=== PATIENT | female | born 1935 | race American Indian/Alaskan Native ===

== ENCOUNTER 2020-07-08 11:29 | Emergency (ER) | payer MEDICARE ==
[2020-07-08] MEDS ORDERED: ACETAMINOPHEN 325 MG TAB PO ONE (13:36)
--- NOTE | 2020-07-08 13:47 | Emergency Department Report ---
ED Fall HPI - General Chief Complaint: Fall Stated Complaint: FALL Time Seen by Provider: 07/08/20 13:35 Source: patient, EMS Mode of arrival: Stretcher - History of Present Illness Initial Comments: 85-year-old female with a history of previous CVA with left-sided motor deficits who presents to the emergency department with complaint of foot pain after a fall. Patient had a unwitnessed fall and was found down on the ground by staff at her snf home. Patient typically gets around with a walker. Patient reports foot pain but denies pain anywhere else. She also denies loss of consciousness. Blood sugar was noted to be 228 with EMS. - Related Data Home Medications Medication Instructions Recorded Confirmed Last Taken Aspirin [Baby Aspirin] 324 mg PO ONCE 06/05/13 Unknown Diltiazem HCl [Diltiazem ER] 240 mg PO 06/05/13 Unknown Ferrous Sulfate [Feosol] 325 mg PO ONCE 06/05/13 Unknown Hydralazine HCl [Apresoline TAB] 50 mg PO Q12H 06/05/13 Unknown Insulin Aspart Prot/Aspart(Nf) 1,000 unit SQ 06/05/13 Unknown [Novolog Mix 70/30] Isosorbide Mononitrate [Isosorbide 60 mg PO 06/05/13 Unknown Mononitrate ER] Latanoprost 0.005% [Xalatan 0.005%] 1 drop OP QPM 06/05/13 Unknown Oxybutynin Chloride [Oxybutynin 5 mg PO QDAY 06/05/13 Unknown Chloride ER] Simvastatin 10 mg PO QDAY 06/05/13 Unknown carvediloL [Coreg] 6.25 mg PO BID 06/05/13 Unknown lisinopriL [Zestril] 5 mg PO QDAY 06/05/13 Unknown Allergies Allergy/AdvReac Type Severity Reaction Status Date / Time No Known Allergies Allergy Verified 06/05/13 21:14 ED Review of Systems ROS: Stated complaint: FALL Other details as noted in HPI Comment: Unobtainable due to pts medical conditions ED Past Medical Hx - Past Medical History Hx Hypertension: Yes Hx Diabetes: Yes Additional medical history: kidney cancer 2001and breast cancer 1989 - Surgical History Additional Surgical History: mastectomy 1989 - Social History Smoking Status: Unknown if ever smoked - Medications Home Medications: Home Medications Medication Instructions Recorded Confirmed Last Taken Type Aspirin [Baby Aspirin] 324 mg PO ONCE 06/05/13 Unknown History Diltiazem HCl [Diltiazem ER] 240 mg PO 06/05/13 Unknown History Ferrous Sulfate [Feosol] 325 mg PO ONCE 06/05/13 Unknown History Hydralazine HCl [Apresoline TAB] 50 mg PO Q12H 06/05/13 Unknown History Insulin Aspart Prot/Aspart(Nf) 1,000 unit SQ 06/05/13 Unknown History [Novolog Mix 70/30] Isosorbide Mononitrate [Isosorbide 60 mg PO 06/05/13 Unknown History Mononitrate ER] Latanoprost 0.005% [Xalatan 0.005%] 1 drop OP QPM 06/05/13 Unknown History Oxybutynin Chloride [Oxybutynin 5 mg PO QDAY 06/05/13 Unknown History Chloride ER] Simvastatin 10 mg PO QDAY 06/05/13 Unknown History carvediloL [Coreg] 6.25 mg PO BID 06/05/13 Unknown History lisinopriL [Zestril] 5 mg PO QDAY 06/05/13 Unknown History ED Physical Exam - General Limitations: No Limitations General appearance: alert, in no apparent distress - Head Head exam: Present: atraumatic, normocephalic - Eye Eye exam: Present: normal appearance, PERRL, EOMI - ENT ENT exam: Present: normal exam - Neck Neck exam: Present: normal inspection - Respiratory Respiratory exam: Present: normal lung sounds bilaterally. Absent: respiratory distress, chest wall tenderness - Cardiovascular Cardiovascular Exam: Present: regular rate, normal rhythm, normal heart sounds - GI/Abdominal GI/Abdominal exam: Present: soft. Absent: distended, tenderness - Rectal Rectal exam: Present: deferred - Expanded Lower Extremity Exam Right Foot/Toe exam: Present: tenderness - Back Exam Back exam: Present: normal inspection - Neurological Exam Neurological exam: Present: alert, oriented X3, other - Psychiatric Psychiatric exam: Present: normal affect - Skin Skin exam: Present: warm, dry, intact ED Course Vital Signs 07/08/20 07/08/20 13:32 13:48 Temperature 98.4 F Pulse Rate 79 Respiratory 16 17 Rate Blood Pressure 187/73 [Left] O2 Sat by Pulse 98 Oximetry - Reevaluation(s) Reevaluation #1: 07/08/20 17:34 Imaging was negative for acute fracture or other injury. Patient to be discharged back to our facility as she is at her baseline. ED Medical Decision Making - EKG Data -: EKG Interpreted by Me EKG shows normal: sinus rhythm Rate: normal - EKG Data When compared to previous EKG there are: previous EKG unavailable 07/08/20 15:26 Left bundle branch block - Radiology Data Radiology results: report reviewed - Medical Decision Making Patient is an 85-year-old female with history of diabetes, previous stroke here with complaint of ground-level fall. She had no loss of consciousness. Patient usually uses a wheelchair so this is likely the reason she fell. Plan for work-up including EKG, chest and pelvis x-ray, CT brain and C-spine. Will give Tylenol for pain and reassess after imaging. Critical care attestation.: If time is entered above; I have spent that time in minutes in the direct care of this critically ill patient, excluding procedure time. ED Disposition Clinical Impression: Hyperglycemia, Fall from ground level, Foot injury Disposition: DC- TO HOME OR SELFCARE Is pt being admited?: No Does the pt Need Aspirin: No Condition: Stable Instructions: Fall Prevention in the Home, Adult, [id number] Referrals: PRIMARY CARE, [Primary Care Provider] - 3-5 Days Print Language: LITHUANIAN
--- NOTE | 2020-07-08 15:02 | XRay Report ---
CHEST 1 VIEW INDICATION: GLF. COMPARISON: None FINDINGS: Support devices: None. Heart: Within normal limits. Lungs/Pleura: No acute air space or interstitial disease. Additional findings: None. IMPRESSION: No acute findings. RIGHT FOOT 3 VIEWS INDICATION: GLF. Tenderness to palpation at the right big toe COMPARISON: None. IMPRESSION: Normal bone mineralization. No acute osseous abnormality or significant joint pathology is demonstrated. The soft tissues appear mildly edematous. PELVIS ONE VIEW INDICATION: GLF. COMPARISON: None. IMPRESSION: No acute osseous abnormality or bone lesion is detected. Mild symmetric degenerative miladis nges are identified at the SI joints. Bilateral hips are unremarkable. Signer Name: John Mack Jr, MD Signed: 07/08/2020 2:58 PM Workstation Name: [id number]
--- NOTE | 2020-07-08 15:39 | Cat Scan Report ---
CT CERVICAL SPINE WITHOUT CONTRAST INDICATION: GLF. TECHNIQUE: Axial imaging performed through the cervical spine without the use of contrast. Sagittal and coronal reconstructed images were also reviewed. All CT scans at this location are performed us ing CT dose reduction for ALARA by means of automated exposure control. COMPARISON: None FINDINGS: Alignment: There is straightening of the normal lordosis. 2 mm anterolisthesis of C4 with respect to C5 is identified which appears degenerative in nature. The remaining vertebra are normal in alignmen t. Bones: There is no acute osseous abnormality. Mild degenerative disc disease at C4-5. Severe degener ative disc disease is identified at C5-6 and C6-7. There is minimal facet arthropathy at C4-5. The r emaining facet joints are unremarkable. Soft tissues: No acute or significant incidental soft tissue abnormality. IMPRESSION: Degenerative findings as described above. No acute process. Signer Name: John Mcak Jr, MD Signed: 07/08/2020 3:35 PM Workstation Name: [id number]
--- NOTE | 2020-07-08 16:10 | Cat Scan Report ---
CT head/brain wo con INDICATION / CLINICAL INFORMATION: 85 years Female; GLF. TECHNIQUE: Routine CT head without contrast. All CT scans at this location are performed using CT dos e reduction for ALARA by means of automated exposure control. COMPARISON: 11/29/2009 FINDINGS: BRAIN / INTRACRANIAL CONTENTS: No acute hemorrhage, mass effect, midline shift, hydrocephalus, or acu te, large territorial infarct. Mild to moderate cerebral and mild cerebellar atrophy. There are moderate areas of decreased attenuation in the white matter of the cerebral hemispheres, as well as the gangliocapsular regions. These are nonspecific findings and may be related to microangio renetta (hypertension, diabetes, atherosclerosis), given the patient's age. It might be difficult to ev aluate for small areas of ischemia without diffusion imaging by MRI. Transsphenoidal meningocele suggested, extending into the posterior nasal airway and adjacent nasopha rynx. Similar type findings suggested on prior. CRANIOCERVICAL JUNCTION: No significant abnormality. ORBITS: Old inferior orbital wall fracture seen on the left - also noted on prior exam. No entrapment of the inferior rectus muscle appreciated. SINUSES / MASTOIDS: No significant abnormality in the visualized paranasal sinuses or mastoid air jose roberto ls. ADDITIONAL FINDINGS: Mild temporomandibular joint disease noted bilaterally. Atherosclerotic disease is seen in the anterior and posterior circulation. IMPRESSION: 1. No focal mass, hemorrhage, hydrocephalus, or acute, large territorial infarct. 2. 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 This finding may be on a developmental or remote posttraumatic basis. 3. Old inferior orbital wall fracture noted on the left. Signer Name: Francisco Tracey MD, III Signed: 07/08/2020 4:05 PM Workstation Name: [id number]
[2020-07-08 18:32] VITALS: BP 195/78
== END 2020-07-08 20:17 | disposition home or self-care (01) ==
LOC: ED 11:29
DX: S99.921A Unspecified injury of right foot, initial encounter (principal); E11.65 Type 2 diabetes mellitus with hyperglycemia; R51.9 Headache, unspecified; I10 Essential (primary) hypertension; Z98.890 Other specified postprocedural states; Z79.899 Other long term (current) drug therapy; W18.30XA Fall on same level, unspecified, initial encounter; Y93.89 Activity, other specified; Y92.89 Other specified places as the place of occurrence of the external cause; Y99.8 Other external cause status
CPT/HCPCS: 70450; 71046; 72125; 72170; 93005